=== PATIENT | female | born 1995 | race American Indian/Alaskan Native ===

== ENCOUNTER 2019-08-14 10:01 | Emergency (ER) | payer SELFPAY ==
[2019-08-14 10:19] VITALS: BP 116/77
[2019-08-14] MEDS ORDERED: IBUPROFEN 800 MG TAB PO ONE (12:27)
--- NOTE | 2019-08-14 12:27 | Emergency Department Report ---
Minor Respiratory - HPI Chief Complaint: Headache Stated Complaint: GENERAL ILLNESS Time Seen by Provider: 08/14/19 12:27 Duration: 3 Days Severity: mild Minor Respiratory: Yes Able to Tolerate Fluids, No Rhinorrhea, No Sore Throat, No Ear Pain, No Cough, No Sick Contacts, No Hemoptysis, No Chest Pain, No Shortness of Breath, No Fever Other History: 24 yo AA female comes to ER with vague co headache and pain when she moves her eyes. general fatigue. no fever. no chills. "hot flashes" but not fever. no trauma. lmp 2 days ago. new to the area. family not ill. did not get flu shot this year. ED Review of Systems ROS: Stated complaint: GENERAL ILLNESS Other details as noted in HPI Comment: All other systems reviewed and negative ED Past Medical Hx - Past Medical History Previous Medical History?: Yes Hx Headaches / Migraines: Yes - Surgical History Past Surgical History?: No - Family History Family history: no significant - Social History Smoking Status: Never Smoker Substance Use Type: Alcohol Minor Respiratory Exam - Exam General: Vital signs noted. No distress. Alert and acting appropriately. HEENT: Yes Moist Mucous Membranes, No Pharyngeal Erythema, No Pharyngeal Exudates, No Rhinorrhea, No Conjuctival Injection, No Frontal Tenderness, No Maxillary Tenderness Ear: Neither TM Bulge, Neither TM Erythema, Neither EAC Pain, Neither EAC D ischarge Neck: Yes Supple, No Adenopathy Lungs: Yes Good Air Exchange, No Wheezes, No Ronchi, No Stridor, No Cough, No Labored Respirations, No Retractions, No Use of Accessory Muscles, No Other Abnormal Lung Sounds Heart: Yes Regular, No Murmur Abdomen: Yes Normal Bowel Sounds, No Tenderness, No Peritoneal Signs Skin: No Rash, No Edema Neurologic: Alert and oriented, no deficits. Musculoskeletal: Unremarkable. ED Course Vital Signs 08/14/19 10:18 Temperature 98.5 F Pulse Rate 61 Respiratory 16 Rate Blood Pressure 116/77 [Right] O2 Sat by Pulse 100 Oximetry ED Medical Decision Making - Medical Decision Making otherwise healthy AA female. no trauma no fever lmp 2 days ago no n/v; no abd pain; no cva or back pain; no dysuria or vag dc vss and normal non ill non toxic appearing taking po medicated for pain with relief pt educated on viral illness. She does not have pcp in the area. dc home with pcp follow up- referral provided Vital Signs 08/14/19 10:18 Temperature 98.5 F Pulse Rate 61 Respiratory 16 Rate Blood Pressure 116/77 [Right] O2 Sat by Pulse 100 Oximetry - Differential Diagnosis viral illness/ migraine/ flu Critical care attestation.: If time is entered above; I have spent that time in minutes in the direct care of this critically ill patient, excluding procedure time. ED Disposition Clinical Impression: Viral illness, Headache Disposition: DC-01 TO HOME OR SELFCARE Is pt being admited?: No Does the pt Need Aspirin: No Condition: Stable Instructions: Viral Syndrome (ED) Additional Instructions: rest hydrate well motrin or tylenol for pain or fever follow up with Dr Knapp next week if not feeling better Referrals: CHALO KNAPP MD [Staff Physician] - 3-5 Days Time of Disposition: 12:47
[2019-08-14] MEDS ORDERED: predniSONE 20 MG TAB PO ONE (12:29)
== END 2019-08-14 13:15 | disposition home or self-care (01) ==
LOC: ED 10:01
DX: B34.9 Viral infection, unspecified (principal); G43.909 Migraine, unspecified, not intractable, without status migrainosus
CPT/HCPCS: 99282; J7512